=== PATIENT | female | born 1955 | race Caucasian/White ===

== ENCOUNTER 2022-08-06 12:11 | Day surgery (SDC) | payer OTHER ==
[~2022-08-06] VITALS: Ht 172.7 cm; Wt 77.1 kg
[2022-08-06] MEDS ORDERED: fentaNYL citrate 0.05 MG/ML VIAL ONE (13:24)
[2022-08-06] MEDS ORDERED: MIDAZOLAM 5 MG/5 ML VIAL ONE (13:24)
[2022-08-06] MEDS ORDERED: diphenhydrAMINE 50 MG/ML VIAL ONE (13:24)
[2022-08-06] MEDS: LIDOCAINE 2% 100 MG/5 ML UJET TP ONE (14:01)
[2022-08-06] MEDS: MIDAZOLAM 2 MG/2 ML VIAL IVP ONE (14:01)
[2022-08-06] MEDS: fentaNYL citrate 0.05 MG/ML VIAL IVP ONE (14:02)
[2022-08-06] MEDS: diphenhydrAMINE 50 MG/ML VIAL IVP ONE (14:03)
== END 2022-08-06 15:30 | disposition home or self-care (01) ==
LOC: MOR 12:11 → MMU 12:13 → MOR 15:30
PROVIDERS: ATTEND Internal Medicine Gastroenterology
DX: Z12.11 Encounter for screening for malignant neoplasm of colon (principal); D12.2 Benign neoplasm of ascending colon; I10 Essential (primary) hypertension; E78.00 Pure hypercholesterolemia, unspecified; Z20.822 Contact with and (suspected) exposure to COVID-19; Z80.0 Family history of malignant neoplasm of digestive organs; Z98.82 Breast implant status; Z79.899 Other long term (current) drug therapy
CPT/HCPCS: 88305; J1200; J2250; J3010